=== PATIENT | female | born 1940 | race Caucasian/White ===

== ENCOUNTER 2020-07-01 17:10 | Observation (INO) | payer MEDICARE ==
[~2020-07-01] VITALS: Ht 149.9 cm; Wt 59.9 kg
[2020-07-01 17:31] VITALS: BP 191/83; PULSE 71; TEMP 97.7
--- NOTE | 2020-07-01 17:50 | NUR ---
Patient arrived to floor from admissions with son. Patient does not speak or understand scottish, son is acting as vocational adviser. ASSEMBLER BRAZER settled patient, hospitalist currently in the room speaking with patient and son.
[2020-07-01 18:44] LABS: BASO # 0.1 (0.0-0.2); BASO % 0.7 % (0.0-2.0); EOS # 0.1 (0.0-0.7); EOS % 1.9 % (0-4.0); GRAN # 4.6 (1.4-6.5); GRAN % 65.2 % (42.2-75.2); HEMATOCRIT 40.7 % (37.0-47.0); HEMOGLOBIN 13.5 g/dl (12.5-16.0); LYMPH # 1.7 (1.2-3.4); LYMPH % 23.7 % (20.0-51.0); MEAN CELL VOLUME 91 fl (80.0-100.0); MEAN CORPUSCULAR HEMOGLOBIN 30 pg (27.0-31.0); MEAN CORPUSCULAR HGB CONC 33 g/dl (33.0-37.0); MEAN PLATELET VOLUME 9.5 fl (7.4-10.4); MONO # 0.6 (0.1-0.6); MONO % 8.4 % (1.7-9.3); PLATELET COUNT 323 K/mm3 (130-400); RED BLOOD COUNT 4.47 M/mm3 (4.10-5.30); REDCELL DISTRIBUTION WIDTH-CV 13.2 % (11.5-14.5)
[2020-07-01 18:57] LABS: ALBUMIN 4.6 gm/dL (3.5-5.0); BILIRUBIN,TOTAL 0.7 mg/dL (0.0-1.0); CALCIUM 10.1 mg/dL (8.4-10.2); CREATININE, serum 0.7 (0.52-1.25); POTASSIUM 3.9 mmol/L (3.4-5.0); TOTAL PROTEIN 8.2 gm/dL (6.4-8.2)
[2020-07-01 19:52] VITALS: BP 174/68; PULSE 75; TEMP 98.1
[2020-07-01 21:00] VITALS: BP 166/79
[2020-07-01] MEDS ORDERED: PROTONIX 40MG T40 MG PO (22:20)
[2020-07-01] MEDS ORDERED: ULTRAM 50MG TAB50 MG PO (22:20)
[2020-07-01] MEDS ORDERED: NORCO 325 MG-51 TAB PO (22:20)
[2020-07-01] MEDS ORDERED: ZESTRIL40 MG PO (22:21)
[2020-07-02] VITALS (8 sets, daily range): BP systolic 116–171; BP diastolic 46–69; PULSE 63–98; TEMP 98–99
--- NOTE | 2020-07-02 04:42 | NUR ---
Patient has been restless the majority of the night d/t pain. Patient's blood pressure noted to be elevated at 171/65. Kelly Damon APRN notified and ordered PRN Hydralazine 10mg IV. This was administered and effective. Rechecked blood pressure was 154/67. Patient called out and was having abdominal pain and nausea. She transferred to the commode with 1A from staff and was able to void, but did not have a bowel movement. Kelly Damon updated on pain and ordered 1mg of IV morphine PRN. This was given and uneffective. Kelly updated. 2mg of IV morphine PRN ordered. This was slightly effective. Patient was assisted back into bed and noted to keep rubbing her left hip and leg. Kpad placed on left hip and patient noted to be asleep upon reassessment. Will continue to monitor.
--- NOTE | 2020-07-02 10:00 | NUR ---
Patient alert and oriented, answers questions appropriately. See assessment. Abdomen soft , slight distention. Bowel sounds active x4 quads. +Flatus. No c/o pain or discomfort.
--- NOTE | 2020-07-02 10:28 | NUR ---
Dr Oquendo here to see patient.
--- NOTE | 2020-07-02 10:33 | NUR ---
Dr Oquendo here to see patient.
[2020-07-03 04:00] VITALS: BP 153/74; PULSE 78; TEMP 97.6
--- NOTE | 2020-07-03 04:43 | NUR ---
Patient has rested very well this shift. Up to the bathroom at the beginning of the shift and patient was able to void and had a very small bowel movement. Urine was contaminated by the bowel. Will obtain a urine specimen with next void. Denies pain throughout the night. Relistor was administered by day shift nurse at shift change. No other bowel movement noted besides the very small one. Will continue to monitor for output.
[2020-07-03 07:54] VITALS: BP 122/50; PULSE 63; TEMP 97.7
--- NOTE | 2020-07-03 08:04 | NUR ---
Dr Oquendo here to see patient.
[2020-07-03] MEDS ORDERED: MOVANTIK25 MG PO ×2 (08:08→08:24)
[2020-07-03] MEDS ORDERED: NEURONTIN100 MG/CAP PO (08:09)
[2020-07-03] MEDS ORDERED: SENOKOT S 50 MG1 TAB PO (08:10)
[2020-07-03] MEDS ORDERED: MIRALAX PA17 GM/Dose PO (08:10)
--- NOTE | 2020-07-03 08:20 | NUR ---
Patient alert and oriented, answers questions appropriately. See assessment. Abdomen soft, non tender, non distended. Bowel sounds hyperactive x4 quads. +Flatus. Small bowel movement this a.m. No c/o at this time.
[2020-07-03 11:20] VITALS: BP 135/51; PULSE 71; TEMP 99
--- NOTE | 2020-07-03 14:27 | NUR ---
Plan to return home with son as care support. Magen Chao . Patient resides with son in [place]. Patient is reported to use a walker for mobility. Son indicated that they are interested in home health supports. PCP is Dr. Wiggins at [facility] and RX obtained from [facility] in [place]. Eudcated son on [place] home health referral. Patient is colombian speaking. Son to provide transport.
--- NOTE | 2020-07-03 16:17 | NUR ---
Discharge instructions reviewed with patient and son, verbalized understanding. Discharged via wheelchair to auto/home with son at 1605.
--- NOTE | 2020-07-05 10:01 | NUR ---
JOSY received a phone call from the patient's son, Magen. Magen reports that his mother was set up with [facility], but that they would prefer [facility]. Magen reports that the patient has had [facility] in the past and would prefer to have care switched to them. JOSY notified Palak at [facility]. JOSY contacted and faxed a referral to Viraj at [facility].
== END 2020-07-03 16:05 | disposition home or self-care (01) ==
LOC: SURG 17:10
PROVIDERS: ADMIT Internal Medicine Pulmonary Disease
DX: R11.2 Nausea with vomiting, unspecified (principal); K59.00 Constipation, unspecified; I10 Essential (primary) hypertension; M48.00 Spinal stenosis, site unspecified; Z82.61 Family history of arthritis
CPT/HCPCS: 99239; G0378; G0379; J0360; J2212; J2270; J2405; J7120